=== PATIENT | male | born 1965 | race Two or more races ===

== ENCOUNTER 2024-03-03 07:21 | Day surgery (SDC) | payer OTHER ==
[~2024-03-03] VITALS: Ht 167.6 cm; Wt 87.5 kg
[2024-03-03] MEDS ORDERED: MIDAZOLAM HCL 5 MG/5 ML VIAL ONE (09:01)
[2024-03-03] MEDS ORDERED: MEPERIDINE 100 MG INJ. 100 MG/ML VIAL ONE (09:01)
[2024-03-03 09:21] VITALS: O2SAT 99
[2024-03-03 14:18] VITALS: BP_SYST 117; PULSE 50; RESP 18
== END 2024-03-03 11:23 | disposition home or self-care (01) ==
LOC: SGI 07:21 → SMU 07:23 → SGI 11:23
PROVIDERS: ATTEND Internal Medicine Gastroenterology
DX: K62.5 Hemorrhage of anus and rectum (principal); D12.2 Benign neoplasm of ascending colon; K29.50 Unspecified chronic gastritis without bleeding; B96.81 Helicobacter pylori [H. pylori] as the cause of diseases classified elsewhere; K31.A0 Gastric intestinal metaplasia, unspecified; K63.89 Other specified diseases of intestine; K59.09 Other constipation; R10.13 Epigastric pain; K57.30 Diverticulosis of large intestine without perforation or abscess without bleeding; K64.8 Other hemorrhoids; Z98.890 Other specified postprocedural states; Z87.891 Personal history of nicotine dependence; Z79.899 Other long term (current) drug therapy; Z87.19 Personal history of other diseases of the digestive system
CPT/HCPCS: 45381; 45385; 43239; 99152; 87081; 36415; 88305; 88312; 88313; 99153; G0378; J2250; J2175; C1889; 45382; 45384